=== PATIENT | male | born 1980 ===

== ENCOUNTER 2017-10-15 15:56 | Emergency (ER) | payer OTHER ==
[2017-10-15] MEDS ORDERED: LISI-362 PO (16:05)
--- NOTE | 2017-10-15 16:05 | ER Report ---
History and Physical Time Seen By MD: 16:05 Hx. of Stated Complaint: pooped purply dark blood last night. none today. states his hernia feels like it's swelling HPI/ROS chief concern: blood in stool HPI: 37 y/o male presents with concern of blood in stool. Reports he identified smear of blood in stool yesterday, followed by "purply clots". Denies mucus in stool, melena, Reports abdominal hernia, unrepaired, that is progressively worsening with bulging and vague discomfort. Denies abdominal pain. Reports nausea with some vomiting in the mornings for the past two months, denies hematemesis or coffee ground emesis. Review of Systems: General: Reports chills. Respiratory: Reports "smoker's cough", denies shortness of breath. CV: Denies chest pain, palpitations GI: Nausea/vomiting x2 months in AM. Reports hematochezia, "purply clots" in stool; denies mucus, melena. Allergies: Coded Allergies: No Known Drug Allergies (Unverified , 10/15/17) Home Meds Active Scripts Omeprazole (OMEPRAZOLE) 40 Mg Capsule.dr, 40 MG PO QDAY, #30 CAP Prov:MARICRUZ ARIZMENDI [facility] 10/15/17 Sucralfate (CARAFATE) 1 Gm Tablet, 1 GM PO QID, #60 TAB Take before meals and at bedtime. Crush the tablet and mix with water before taking. Prov:MARICRUZ ARIZMENDI [facility] 10/15/17 Reported Medications Lisinopril (LISINOPRIL) 10 Mg Tablet, 10 MG PO QDAY, TAB 10/15/17 Past Medical/Surgical History Patient has a past medical history of hypertension, hiatal hernia. Patient has surgical history of an exploratory abdominal surgery. Reviewed Nurses Notes: Yes Constitutional Vital Sign - Last 24 Hours 10/15/17 10/15/17 10/15/17 10/15/17 16:00 16:01 16:11 16:26 Temp 97.5 Pulse 110 110 105 Resp 14 B/P (MAP) 156/77 (103) 156/77 Pulse Ox 95 96 94 O2 Delivery Room Air 10/15/17 10/15/17 10/15/17 10/15/17 16:30 16:35 17:00 17:05 Pulse 108 101 B/P (MAP) 138/108 (118) 126/75 (92) Pulse Ox 94 94 10/15/17 10/15/17 10/15/17 10/15/17 17:30 17:35 18:00 18:05 Pulse 100 100 B/P (MAP) 136/83 (100) 139/78 (98) Pulse Ox 94 94 Intake and Output 10/15/17 10/15/17 10/16/17 15:00 23:00 07:00 Intake Total 1000 ml Balance 1000 ml Physical Exam Physical Exam: General: Alert,oriented x3. In no acute distress. HENT: Ears warm to touch bilaterally. TM pearly sanford, canals clear, no erythema. Posterior pharynx mild erythema. Tonsillar lymphadenopathy, right more than left, nontender. Respiratory: Slight expiratory wheezes throughout. No crackles, rhonchi, rales. No increased work of breathing. CV: Reglar rhythm, tachycardic rate. GI: Abdomen soft, no ecchymosis. Bowel sounds hypoactive left quadrants, normoactive right quadrants. Scattered dullness/tympany to percussion, dullness over hernial protrusion. Scar midline abdomen, approximately 7cm in length, well healed, with hernial protrusion superior to umbilicus approximately 3cm in diameter. Vague discomfort to palpation, denies pain. After thorough HPI and ROS, the following differentials were considered but not limited to: GI bleed, diverticulitis, colitis, bowel obstruction, hernia. Medical Decision Making Data Points Result Diagram: 10/15/17 1614 10/15/17 1614 Laboratory Hematology Test 10/15/17 16:14 10/15/17 16:29 10/15/17 16:44 Red Blood Count 5.25 M/uL (4.00-5.60) Mean Corpuscular Volume 95.7 fL (80.0-96.0) Mean Corpuscular Hemoglobin 34.0 pg (26.0-33.0) Mean Corpuscular Hemoglobin Concent 35.6 g/dL (32.0-36.0) Red Cell Distribution Width 13.4 % (11.5-14.5) Mean Platelet Volume 7.2 fL (7.2-11.1) Neutrophils (%) (Auto) 62.8 % (39.4-72.5) Lymphocytes (%) (Auto) 24.1 % (17.6-49.6) Monocytes (%) (Auto) 8.9 % (4.1-12.4) Eosinophils (%) (Auto) 3.5 % (0.4-6.7) Basophils (%) (Auto) 0.7 % (0.3-1.4) Nucleated RBC Relative Count (auto) 0.0 /100WBC Neutrophils # (Auto) 7.9 K/uL (2.0-7.4) Lymphocytes # (Auto) 3.0 K/uL (1.3-3.6) Monocytes # (Auto) 1.1 K/uL (0.3-1.0) Eosinophils # (Auto) 0.4 K/uL (0.0-0.5) Basophils # (Auto) 0.1 K/uL (0.0-0.1) Nucleated RBC Absolute Count (auto) 0.00 K/uL Sodium Level 136 mmol/L (137-145) Potassium Level 3.2 mmol/L (3.5-5.0) Chloride Level 95 mmol/L (98-107) Carbon Dioxide Level 26 mmol/L (22-30) Blood Urea Nitrogen 14 mg/dl (9-21) Creatinine 1.10 mg/dl (0.66-1.25) Glomerular Filtration Rate Calc > 60.0 Random Glucose 119 mg/dl (75-110) Calcium Level 9.7 mg/dl (8.4-10.2) Total Bilirubin 0.5 mg/dl (0.2-1.3) Aspartate Amino Transf (AST/SGOT) 40 U/L (0-35) Alanine Aminotransferase (ALT/SGPT) 67 U/L (0-56) Alkaline Phosphatase 128 U/L (0-126) Total Protein 8.1 gm/dl (6.3-8.2) Albumin 4.6 g/dl (3.5-5.0) Stool Occult Blood (IFOB) Negative (NEGATIVE) Influenza Virus Type A (PCR) Negative (NEGATIVE) Influenza Virus Type B (PCR) Negative (NEGATIVE) Chemistry Test 10/15/17 16:14 10/15/17 16:29 10/15/17 16:44 White Blood Count 12.6 k/uL (4.5-11.0) Red Blood Count 5.25 M/uL (4.00-5.60) Hemoglobin 17.9 g/dL (14.0-18.0) Hematocrit 50.3 % (42.0-52.0) Mean Corpuscular Volume 95.7 fL (80.0-96.0) Mean Corpuscular Hemoglobin 34.0 pg (26.0-33.0) Mean Corpuscular Hemoglobin Concent 35.6 g/dL (32.0-36.0) Red Cell Distribution Width 13.4 % (11.5-14.5) Platelet Count 300 K/uL (150-450) Mean Platelet Volume 7.2 fL (7.2-11.1) Neutrophils (%) (Auto) 62.8 % (39.4-72.5) Lymphocytes (%) (Auto) 24.1 % (17.6-49.6) Monocytes (%) (Auto) 8.9 % (4.1-12.4) Eosinophils (%) (Auto) 3.5 % (0.4-6.7) Basophils (%) (Auto) 0.7 % (0.3-1.4) Nucleated RBC Relative Count (auto) 0.0 /100WBC Neutrophils # (Auto) 7.9 K/uL (2.0-7.4) Lymphocytes # (Auto) 3.0 K/uL (1.3-3.6) Monocytes # (Auto) 1.1 K/uL (0.3-1.0) Eosinophils # (Auto) 0.4 K/uL (0.0-0.5) Basophils # (Auto) 0.1 K/uL (0.0-0.1) Nucleated RBC Absolute Count (auto) 0.00 K/uL Glomerular Filtration Rate Calc > 60.0 Calcium Level 9.7 mg/dl (8.4-10.2) Total Bilirubin 0.5 mg/dl (0.2-1.3) Aspartate Amino Transf (AST/SGOT) 40 U/L (0-35) Alanine Aminotransferase (ALT/SGPT) 67 U/L (0-56) Alkaline Phosphatase 128 U/L (0-126) Total Protein 8.1 gm/dl (6.3-8.2) Albumin 4.6 g/dl (3.5-5.0) Stool Occult Blood (IFOB) Negative (NEGATIVE) Influenza Virus Type A (PCR) Negative (NEGATIVE) Influenza Virus Type B (PCR) Negative (NEGATIVE) EKG/Imaging Imaging EXAMINATION: CT abdomen and pelvis with contrast COMPARISON: None. HISTORY: Blood in stool. PROCEDURE: Multiplanar contrast enhanced CT of the abdomen and pelvis with 75 mL intravenous Isovue 370. One of the following dose optimization techniques was utilized in the performance of this exam: Automated exposure control; adjustment of the mA and/or kV according to the patient's size; or use of an iterative reconstruction technique. Specific details can be referenced in the facility's radiology CT exam operational policy. FINDINGS: Visualized thorax: Negative. Liver: Posterior right hepatic dome 6 mm low-attenuation lesion favored to be a small cyst. Gallbladder and biliary system: Negative Spleen: Spleen size is normal. Pancreas: Negative. Adrenal glands: Negative. Kidneys and bladder: No renal mass or evidence of an obstructive uropathy. Urinary bladder is unremarkable. Vessels: Within normal limits. Bowel and mesentery: Stomach is within normal limits. Small bowel is unremarkable. Appendectomy. Small amount of stool in the colon. There are a few diverticula along the left hemicolon. No bowel or mesenteric inflammation. Pelvic organs: Negative. Lymph nodes: No adenopathy. Free air/free fluid: None. Abdominal wall and osseous structures: There are 3 supraumbilical midline fat- containing ventral hernias. These include an epigastric hernia with a 10 mm neck ; a mid abdominal hernia with a 1.2 x 1.2 cm neck 4.5 cm cephalad to the umbilicus; and a small supraumbilical hernia with a 4 mm neck 2 cm cephalad to the umbilicus. Small to moderate bilateral fat-containing inguinal hernias. The herniated fat is unremarkable. Osseous structures are intact. IMPRESSION: 1. No findings of acute disease in the abdomen or pelvis. 2. Nonacute findings as described above. Report Dictated By: Bello Littlejohn MD at 10/15/2017 5:35 PM Report E-Signed By: Bello Littlejohn MD at 10/15/2017 5:42 PM ED Course/Re-evaluation ED Course Patient admitted to exam room. Thorough HPI and ROS obtained. Physical exam revealed abdomen soft, no ecchymosis. Bowel sounds hypoactive left quadrants, normoactive right quadrants. Scattered dullness/tympany to percussion, dullness over hernial protrusion. Scar midline abdomen, approximately 7cm in length, well healed, with hernial protrusion superior to umbilicus approximately 3cm in diameter. Vague discomfort to palpation, denies pain. The following differentials were considered but not limited to: GI bleed, diverticulitis, colitis, bowel obstruction, hernia. Diagnostic tests included CBC, CMP, stool occult blood, abdominal CT. CBC showed slightly elevated WBC 12.5. CMP showed elevated AST 40, ALT 67, Alk Phos 128. Occult blood negative. IMPRESSION: 1. No findings of acute disease in the abdomen or pelvis. 2. Nonacute findings as described above. Findings discussed with patient, and concern for GI bleed. Patient directed to initiate omeprazole and Carafate, avoid ibuprofen and other NSAIDS, follow up with primary care as soon as he returns to [place]. Patient verbalized understanding and agreed to plan. Decision to Disposition Date: Oct 15, 2017 Decision to Disposition Time: 17:58 Depart Departure Latest Vital Signs Vital Signs Date Time Temp Pulse Resp B/P (MAP) Pulse Ox O2 Delivery O2 Flow Rate FiO2 10/15/17 18:05 100 94 10/15/17 18:00 139/78 (98) 10/15/17 16:01 97.5 14 Room Air Impression: Primary Impression: GI bleed Condition: Improved Disposition: HOME OR SELF-CARE New Scripts Omeprazole (OMEPRAZOLE) 40 Mg Capsule. 40 MG PO QDAY, #30 CAP Prov: MARICRUZ ARIZMENDI 10/15/17 Sucralfate (CARAFATE) 1 Gm Tablet 1 GM PO QID, #60 TAB Take before meals and at bedtime. Crush the tablet and mix with water before taking. Prov: MARICRUZ ARIZMENDI 10/15/17 Patient Instructions: Gastrointestinal Bleeding (ED) Additional Instructions: Increase fluid intake. Get plenty of rest. Follow up with your primary care provider when you return to [place]. Limit activity by pain. Avoid Ibuprofen or Aleve. Follow up in an ER if condition worsens. Problem Qualifiers Primary Impression: GI bleed GI bleed type/associated pathology: unspecified gastrointestinal hemorrhage type Qualified Codes: K92.2 - Gastrointestinal hemorrhage, unspecified MARICRUZ ARIZMENDI Oct 15, 2017 16:05
[2017-10-15] MEDS ORDERED: NS(*) 0.9% 1000 ML BAG 1,000 ML IV ONE (16:35)
[2017-10-15 16:46] LABS: PLATELET COUNT, AUTOMATED 300 K/uL (150-450)
[2017-10-15] MEDS ORDERED: IOPAMIDOL 76% 75 ML INFUS BTL 75 ML ONE (16:56)
--- NOTE | 2017-10-15 17:46 | RADIOLOGY IMAGING REPORT ---
FACILITY: [facility] [place] PATIENT NAME: Shine Michel : 1980 MR: [id number] V: [id number] EXAM DATE: ORDERING PHYSICIAN: MARICRUZ ARIZMENDI TECHNOLOGIST: Location: [facility] Patient: Shine Michel : 1980 Visit/Account:[id number] Date of Sevice: 10/15/2017 EXAMINATION: CT abdomen and pelvis with contrast COMPARISON: None. HISTORY: Blood in stool. PROCEDURE: Multiplanar contrast enhanced CT of the abdomen and pelvis with 75 mL intravenous Isovue 3 70. One of the following dose optimization techniques was utilized in the performance of this exam: A utomated exposure control; adjustment of the mA and/or kV according to the patient's size; or use of an iterative reconstruction technique. Specific details can be referenced in the facility's radiolo gy CT exam operational policy. FINDINGS: Visualized thorax: Negative. Liver: Posterior right hepatic dome 6 mm low-attenuation lesion favored to be a small cyst. Gallbladder and biliary system: Negative Spleen: Spleen size is normal. Pancreas: Negative. Adrenal glands: Negative. Kidneys and bladder: No renal mass or evidence of an obstructive uropathy. Urinary bladder is unrema rkable. Vessels: Within normal limits. Bowel and mesentery: Stomach is within normal limits. Small bowel is unremarkable. Appendectomy. Smal l amount of stool in the colon. There are a few diverticula along the left hemicolon. No bowel or mes enteric inflammation. Pelvic organs: Negative. Lymph nodes: No adenopathy. Free air/free fluid: None. Abdominal wall and osseous structures: There are 3 supraumbilical midline fat-containing ventral briana ias. These include an epigastric hernia with a 10 mm neck; a mid abdominal hernia with a 1.2 x 1.2 cm neck 4.5 cm cephalad to the umbilicus; and a small supraumbilical hernia with a 4 mm neck 2 cm cepha lad to the umbilicus. Small to moderate bilateral fat-containing inguinal hernias. The herniated fat is unremarkable. Osseous structures are intact. IMPRESSION: 1. No findings of acute disease in the abdomen or pelvis. 2. Nonacute findings as described above. Report Dictated By: Bello Littlejohn MD at 10/15/2017 5:35 PM Report E-Signed By: Bello Littlejohn MD at 10/15/2017 5:42 PM WSN:[id number]
[2017-10-15] MEDS ORDERED: OMEP40CA48 PO (17:57)
[2017-10-15] MEDS ORDERED: SUCR1TAB85 PO (17:57)
[2017-10-15 18:00] VITALS: BP 139/78
== END 2017-10-15 18:17 | disposition home or self-care (01) ==
LOC: ER 16:17
DX: K92.2 Gastrointestinal hemorrhage, unspecified (principal)
CPT/HCPCS: 74177; 82274; 85025; 87502; 96360; 99284; J7030; Q9967; 82040; 82247; 82310; 82374; 82435; 82565; 82947; 84075; 84132; 84155; 84295; 84450; 84460; 84520